=== PATIENT | female | born 1995 | race Caucasian/White ===

== ENCOUNTER 2018-01-05 15:50 | Emergency (ER) | payer BC ==
[~2018-01-05] VITALS: Ht 167.6 cm; Wt 56.8 kg
[~2018-01-05 15:50] MED LIST: NATURAL IRON65 MG PO; ULTRAM 50MG TAB50 MG PO
[2018-01-05 15:52] VITALS: TEMP 96.7
[2018-01-05 16:32] LABS: COLLECTION METHOD CLEAN CATCH
[2018-01-05 16:40] LABS: PH 7 (5-8); SQUAMOUS EPITHELIAL 0-2 /hpf; URINE APPEARANCE Clear; URINE BACTERIA None Seen /hpf; URINE BILIRUBIN Negative (NEGATIVE); URINE BLOOD Negative (NEGATIVE); URINE COLOR Colorless; URINE GLUCOSE Negative (NEGATIVE); URINE KETONE Negative (NEGATIVE); URINE LEUKOCYTE ESTERASE Negative (NEGATIVE); URINE NITRATE Negative (NEGATIVE); URINE PROTEIN(semi-quant) Negative (NEGATIVE); URINE RBC 0-2 /hpf; URINE UROBILINOGEN Negative (NEGATIVE)
[2018-01-05 16:48] LABS: BASO % 0.3 % (0.0-2.0); GRAN # 4.8 (1.4-6.5); GRAN % 79.2 % (42.2-75.2); LYMPH % 17.3 % (20.0-51.0); MEAN CELL VOLUME 83 fl (80.0-100.0); MEAN CORPUSCULAR HEMOGLOBIN 27 pg (27.0-31.0); MEAN CORPUSCULAR HGB CONC 33 g/dl (33.0-37.0); MEAN PLATELET VOLUME 9.9 fl (7.4-10.4); MONO # 0.2 (0.1-0.6); MONO % 2.7 % (1.7-9.3); PLATELET COUNT 201 K/mm3 (130-400); RED BLOOD COUNT 4.42 M/mm3 (4.10-5.30); REDCELL DISTRIBUTION WIDTH-CV 12.7 % (11.5-14.5)
[2018-01-05 16:49] LABS: HEMATOCRIT 36.6 % (37.0-47.0)
[2018-01-05 16:56] LABS: ALBUMIN 3.7 gm/dL (3.5-5.0); BILIRUBIN,TOTAL 0.1 mg/dL (0.0-1.0); CALCIUM 9.2 mg/dL (8.4-10.2); CREATININE, serum 0.69 mg/dL (0.52-1.25); POTASSIUM 4.3 mmol/L (3.4-5.0); TOTAL PROTEIN 6.8 gm/dL (6.4-8.2)
[2018-01-05 17:13] LABS: PROLACTIN 48.7 ng/mL (3.0-18.6)
[2018-01-05 18:54] VITALS: BP 114/70; PULSE 50
== END 2018-01-05 18:45 | disposition home or self-care (01) ==
LOC: COL.ER 15:50
PROVIDERS: Emergency Medicine
DX: G40.909 Epilepsy, unspecified, not intractable, without status epilepticus (principal); Z98.890 Other specified postprocedural states

== ENCOUNTER → 2018-01-23 | Outpatient (CLI) | payer BC | LOC: COL.CARD 10:07 | DX: R56.9 Unspecified convulsions (principal) | CPT/HCPCS: A9585 ==